=== PATIENT | female | born 1995 | race Caucasian/White ===

== ENCOUNTER 2022-04-05 20:09 | Emergency (ER) | payer MEDICAID, SELFPAY ==
[2022-04-05 20:15] VITALS: BP 135/78; PULSE 88; RESP 16; TEMP 36.7; O2SAT 99; BMI 30.9
--- NOTE | 2022-04-05 20:36 | CRLHL7_ITS ---
For Patients: As a result of the Century Cures Act, medical imaging exams and procedure reports are released immediately into your electronic medical record. You may view this report before your referring provider. If you have questions, please contact your health care provider. INDICATION: Pain after skiing injury. Suspect patellar dislocation and reduction. COMPARISON: None available. FINDINGS: The left knee was examined with AP, lateral, and sunrise views for a total of three views. There is no sign of fracture or dislocation. The medial and lateral compartments are normal in height. There is a tiny suprapatellar joint effusion. No soft tissue abnormality is seen. IMPRESSION: No sign of acute osseous injury. Specifically, no sign of patellar dislocation. Minimal suprapatellar joint effusion. Dictated by Maksim Keene MD @ 04/05/2022 9:19:17 PM (Electronically Signed)
[2022-04-05] MEDS: OxyCODONE/APAP 5-325 TABLET 1 TAB PO (21:36)
[2022-04-05] MEDS: IBUPROFEN 400 MG TABLET 800 MG PO (21:37)
--- NOTE | 2022-04-07 03:53 | ED.LOWEXIN ---
HPI - Extremity Injury (Lower) General Chief Complaint: Extremity Pain/Injury, Lower Stated Complaint: left dislocation Time Seen by Provider: 04/05/22 20:25 History of Present Illness HPI Narrative: 27-year-old young woman presenting to the emergency department with concern of left knee pain. Crashed was skiing down hill earlier today. Noted that the left patella went she believes laterally. 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 She can also usually manipulate back into place. Concerned because it just continued to have a good deal of discomfort. Did feel a pain especially behind the left knee and peripatellar. She did not really injure anything else. There was no head injury. There has been no loss of consciousness. Is worried that this patella might pop out again. Has been icing. Related Data Home Medications Medication Instructions Recorded Confirmed albuterol sulfate 90 mcg/actuation inhalation 04/05/22 aerosol inhaler (ProAir HFA) dextroamphetamine-amphetamine ER PO BID 04/05/22 30 mg 24hr capsule,extend release (Adderall XR) minocycline 100 mg capsule mg PRN 04/05/22 norgestimate-ethinyl estradiol tab 04/05/22 0.18 mg/0.215mg/0.25mg-35 mcg(28)tablet (Tri-Sprintec (28)) Allergies Allergy/AdvReac Type Severity Reaction Status Date / Time No Known Drug Allergies Allergy Verified 04/05/22 20:19 Review of Systems Status of ROS: Reports: 6 or more systems reviewed and unremarkable except as noted in History and below PFSH PFSH Social History Smoking Status: Never smoker How often do you have a drink containing alcohol: never AUDIT-C Alcohol total score: 0 Non-prescribed substance use: denies use Exam Narrative: Exam Narrative: Pleasant. Here in wheelchair. Clearly uncomfortable. Icing her red cheeks as opposed to her knee initially. Skin is warm and dry otherwise. Head looks atraumatic. Breathing easily. Examination of the left leg elsewhere does not show tenderness to palpation other than medial and lateral aspects of the patella primarily. Do not appreciate an effusion. She is wearing tights and seated in a wheelchair so a bit challenging exam. Does not appear to have laxity to varus or valgus stressors or to Ferdinand's. Patella is clearly in place. Also tender to palpation the suprapatellar area without any defect. Good strength to flexion extension of the leg. Const: Documenting provider has reviewed patient's vital signs: yes Course Vital Signs Vital signs: Initial Vital Signs Temperature 98.1 F 04/05/22 20:15 Temperature Source Temporal Artery Scan 04/05/22 20:15 Pulse Rate 88 04/05/22 20:15 Respiratory Rate 16 04/05/22 20:15 Blood Pressure 135/78 04/05/22 20:15 Blood Pressure Mean 97 04/05/22 20:15 Blood Pressure Position Sitting 04/05/22 20:15 Pulse Oximetry 99 04/05/22 20:15 Oxygen Delivery Method 04/05/22 20:15 Vital Signs Temperature 98.1 F 04/05/22 20:15 Pulse Rate 88 04/05/22 20:15 Respiratory Rate 16 04/05/22 20:15 Blood Pressure 135/78 04/05/22 20:15 Pulse Oximetry 99 04/05/22 20:15 Oxygen Delivery Method 04/05/22 20:15 Temperature 98.1 F 04/05/22 20:15 Pulse Rate 88 04/05/22 20:15 Respiratory Rate 16 04/05/22 20:15 Blood Pressure 135/78 04/05/22 20:15 Pulse Oximetry 99 04/05/22 20:15 Oxygen Delivery Method 04/05/22 20:15 MDM - Extremity Injury (Lower) MDM Narrative Medical decision making narrative: I discussed likelihood of patellar subluxation/dislocation and spontaneous relocation. Doubtful that has had any other bony injury here but given degree of discomfort it is reasonable to do an x-ray as initial aspect of workup. I would anticipate knee immobilizer. Lucia is increasingly uncomfortable over time in the emergency department. Initially thinks that will benefit from ibuprofen but then later feels like she would need more for pain. Ordered for ibuprofen and 1 tablet of 5/325 Percocet Sent to x-ray. By my read does not appear to be any bony abnormality and patella in place. Radiology noting small suprapatellar effusion. Adeola was anticipating knee immobilizer. This was placed. Also given 6 in Bar wrap. Discharge Plan Discharge Clinical Impression: Lateral subluxation of left patella Patient Disposition: Home w/ Parent or Adult Condition: Stable Additional Instructions: Would use that Bar wrap to hold on some ice packs maybe in front and behind the knee to ice little bit more tonight. Ice a few times daily over the next few days. Wear this knee immobilizer more for comfort than anything else over the next few days. If you are feeling better don't worry about it. I do think that these exercises are important and without stabilizing and strengthening your knee, this will continue to happen. It is possible you need more than this strengthening. Consider following up with primary care for work with physical therapy or be seen by sports med or even orthopedics locally. Orthopedics at least locally phone number is [phone]. Can take up to 800 mg of ibuprofen or up to 1000 mg of acetaminophen per dose. Alternative to the ibuprofen could be up to 500 mg naproxen 2 times daily. Remember that each tablet of [place] has 325 mg of acetaminophen in it. [place] from [facility]. Prescriptions: No Action albuterol sulfate [ProAir HFA] 90 mcg/actuation HFA aerosol inhaler INHALATION dextroamphetamine-amphetamine [Adderall XR] 30 mg capsule,extended release 24hr PO BID Label Comments: TAKE 1 CAPSULE BY MOUTH TWICE DAILY AT 7AM AND NOON (DO NOT FILL TIL 01/22/2022) minocycline 100 mg capsule PRN norgestimate-ethinyl estradiol [Tri-Sprintec (28)] 0.18/0.215/0.25 mg-35 mcg (28) tablet Label Comments: TAKE 1 TABLET BY MOUTH ONCE DAILY Follow Up/Referrals: Provider,Not a Local [Primary Care Provider] - Stand Alone Forms: [employer] Info Instructions
== END 2022-04-05 21:51 | disposition home or self-care (01) ==
PROVIDERS: Emergency Provider Family Medicine
DX: S83.012A Lateral subluxation of left patella, initial encounter (principal); Y93.23 Activity, snow (alpine) (downhill) skiing, snowboarding, sledding, tobogganing and snow tubing
CPT/HCPCS: 29505; 73562; 99283; 99284; A9270